=== PATIENT | male | born 1970 | race Caucasian/White ===

== ENCOUNTER 2018-10-09 05:07 | Emergency (ER) | payer BC ==
[2018-10-09] MEDS ORDERED: Sodium Chloride 0.9% 10 ML Syringe FLUSH PRN (05:19)
[2018-10-09] MEDS ORDERED: Sodium Chloride 0.9% 1,000 ML IV SCH (05:30)
--- NOTE | 2018-10-09 05:32 | EDM.PDOC ---
ED HPI GENERAL MEDICAL PROBLEM - General Chief Complaint: Neuro Symptoms/Deficits Stated Complaint: UPPER BACK PAIN Time Seen by Provider: 10/09/18 05:15 Source of Information: Reports: Patient, Family History Limitations: Reports: No Limitations - History of Present Illness INITIAL COMMENTS - FREE TEXT/NARRATIVE: The patient presents with difficulty speaking. This morning his mom heard him stumbling around at 3am. He was having trouble moving his right leg and he was confused. He wanted to take a bath. She did not want him to but he did and then they came here. The patient can speak but he cannot saw the right words and he mixes them up like he knows it is Tuesday but he calls it Monder. He denies numbness or weakness. He has no headache. He has no fever, chills cough , congestion or runny nose. He has no chest pain or shortness of breath. This has never happened before. He did chores last night and moved some snow and he went to bed at 8:30pm. That was the last time known well. He has no medical problems like hypertension, hypercholesterolemia, or diabetes. His blood sugar was 133 on exam. Onset: Gradual Duration: Day(s): (His last time known well was 8:30pm last night) Severity: Moderate Improves with: Reports: None Worsens with: Reports: None Associated Symptoms: Reports: No Other Symptoms - Related Data Allergies Allergy/AdvReac Type Severity Reaction Status Date / Time No Known Allergies Allergy Verified 10/09/18 05:19 ED ROS GENERAL - Review of Systems Review Of Systems: See Below Constitutional: Reports: No Symptoms HEENT: Reports: No Symptoms Respiratory: Reports: No Symptoms Cardiovascular: Reports: No Symptoms Endocrine: Reports: No Symptoms GI/Abdominal: Reports: No Symptoms : Reports: No Symptoms Musculoskeletal: Reports: No Symptoms Skin: Reports: No Symptoms Neurological: Reports: Trouble Speaking, Difficulty Walking ED EXAM, NEURO - Physical Exam Exam: See Below Exam Limited By: No Limitations General Appearance: Alert, No Apparent Distress Ears: Normal External Exam Nose: Normal Inspection Head Exam: Atraumatic, Normocephalic Neck: Normal Inspection Respiratory/Chest: No Respiratory Distress, Lungs Clear, Normal Breath Sounds Cardiovascular: Regular Rate, Rhythm, No Edema, No Murmur GI/Abdominal: Soft, Non-Tender, No Organomegaly, No Mass Neurological: Alert, Oriented x 3, Other (Mild weakness to this right arm and leg. Trouble speaking where he cannot say a word right. He can follow commands.) Extremities: Normal Inspection EKG INTERPRETATION EKG Date: 10/09/18 Time: 05:23 Rhythm: NSR Rate (Beats/Min): 66 [place]: Normal P-Wave: Present QRS: Normal ST-T: Normal QT: Normal Course - Vital Signs Last Recorded V/S: Last Vital Signs Temp 96.6 F 10/09/18 05:12 Pulse 69 10/09/18 05:12 Resp 9 L 10/09/18 05:12 BP 147/87 H 10/09/18 05:12 Pulse Ox 100 10/09/18 05:12 - Orders/Labs/Meds Orders: Active Orders 24 hr Category Date Time Status Cardiac Monitoring [RC] . DIRECTED Care 10/09/18 05:20 Active EKG Documentation Completion [RC] STAT Care 10/09/18 05:20 Active Peripheral IV Care [RC] . DIRECTED Care 10/09/18 05:21 Active Head wo Cont [CT] Stat Exams 10/09/18 05:33 Taken DRUG SCREEN, URINE [URCHEM] Stat Lab 10/09/18 05:19 Ordered INR,PT,PROTHROMBIN TIME [COAG] Stat Lab 10/09/18 05:19 Received PTT,PARTIAL THROMBOPLSTIN TIME [COAG] Stat Lab 10/09/18 05:19 Received Sodium Chloride 0.9% [Normal Saline] 1,000 ml Med 10/09/18 05:30 Active IV ASDIRECTED Sodium Chloride 0.9% [Saline Flush] Med 10/09/18 05:19 Active 10 ml FLUSH ASDIRECTED PRN Peripheral IV Insertion Adult [OM.PC] Stat Oth 10/09/18 05:19 Ordered Medication Orders Sodium Chloride (Normal Saline) 1,000 mls @ 125 mls/hr IV ASDIRECTED RENATE Last Admin: 10/09/18 05:40 Dose: 125 mls/hr Sodium Chloride (Saline Flush) 10 ml FLUSH ASDIRECTED PRN PRN Reason: Keep Vein Open Last Admin: 10/09/18 05:40 Dose: 10 ml Labs: Laboratory Tests 10/09/18 10/09/18 10/09/18 Range/Units 05:17 05:19 05:19 WBC 8.36 (4.23-9.07) K/mm3 RBC 5.42 (4.63-6.08) M/mm3 Hgb 15.0 (13.7-17.5) gm/L Hct 44.7 (40.1-51.0) % MCV 82.5 (79.0-92.2) fl MCH 27.7 (25.7-32.2) pg MCHC 33.6 (32.2-35.5) g/dl RDW Std Deviation 39.8 (35.1-43.9) fL Plt Count 198 (163-337) K/mm3 MPV 10.2 (9.4-12.3) fl Neut % (Auto) 74.3 H (34.0-67.9) % Lymph % (Auto) 16.7 L (21.8-53.1) % Cameron % (Auto) 6.9 (5.3-12.2) % Eos % (Auto) 0.8 (0.8-7.0) Baso % (Auto) 0.2 (0.1-1.2) % Neut # (Auto) 6.20 H (1.78-5.38) K/mm3 Lymph # (Auto) 1.40 (1.32-3.57) K/mm3 Cameron # (Auto) 0.58 (0.30-0.82) K/mm3 Eos # (Auto) 0.07 (0.04-0.54) K/mm3 Baso # (Auto) 0.02 (0.01-0.08) K/mm3 Sodium 139 (136-145) mEq/L Potassium 3.6 (3.5-5.1) mEq/L Chloride 102 (98-107) mEq/L Carbon Dioxide 26 (21-32) mEq/L Anion Gap 14.6 (5-15) BUN 25 H (7-18) mg/dL Creatinine 1.0 (0.7-1.3) mg/dL Est Cr Clr Drug Dosing TNP Estimated GFR (MDRD) > 60 (>60) mL/min BUN/Creatinine Ratio 25.0 H (14-18) Glucose 137 H (74-106) mg/dL POC Glucose 133 H (70-105) mg/dL Calcium 8.6 (8.5-10.1) mg/dL Total Bilirubin 0.5 (0.2-1.0) mg/dL AST 23 (15-37) U/L ALT 61 (16-63) U/L Alkaline Phosphatase 88 (46-116) U/L Troponin I < 0.017 (0.00-0.056) ng/mL Total Protein 7.0 (6.4-8.2) g/dl Albumin 4.0 (3.4-5.0) g/dl Globulin 3.0 gm/dL Albumin/Globulin Ratio 1.3 (1-2) Ethyl Alcohol 0.00 (0.00) gm% Meds: Medications Generic Name Dose Route Start Last Admin Trade Name Freq PRN Reason Stop Dose Admin Sodium Chloride 1,000 mls @ 125 mls/hr 10/09/18 05:30 10/09/18 05:40 Normal Saline IV 125 mls/hr ASDIRECTED RENATE Administration Sodium Chloride 10 ml 10/09/18 05:19 10/09/18 05:40 Saline Flush FLUSH 10 ml ASDIRECTED PRN Administration Keep Vein Open - Re-Assessments/Exams Free Text/Narrative Re-Assessment/Exam: 10/09/18 05:35 A stroke alert was called. I went into the room right away. The patient was having trouble speaking and mild right arm and leg weakness. His last time known well was last night at 8:30pm. He is out of the time limit for thrombolytics. I ordered an IV saline lock, CT of his head, EKG and labs. His EKG shows a NSR with no acute changes. 10/09/18 05:59 His CBC and CMP look good. His troponin is negative. His ETOH is negative. [facility] radiologist called me and said that there is no intracranial hemorrhage. He does have asymmetrically hyperdense left M2 is suspicious for acute infarct or ischemia of the left MCA territory. No cortically based edema/difinite infarct is confirmed in this distribution at this time. Age indeterminate 1cm lacunar infarct of the left paramedian rostral jeff. This is in the vicinity of or immediately posterior to the corticospinal tracts. The lacunar infarct of the right basal ganglia caudate and putaman is somewhat favored to be chronic , but age indeterminate in the absence of prior studies. I feel he needs further care at a stroke center. I called [facility] in [place] and talked with Dr Garcia from the ER and he accepted the patient. [facility] will be flying him with the helicopter. Departure - Departure Time of Disposition: 06:15 Disposition: DC/Tfer to Acute Hospital 02 Condition: Serious Clinical Impression: Cerebrovascular accident (CVA) Qualifiers: CVA mechanism: unspecified Qualified Code(s): I63.9 - Cerebral infarction, unspecified - Discharge Information Referrals: Palma Rojas, MANAGER OF IT [Primary Care Provider] - Forms: ED Department Discharge - My Orders Last 24 Hours: My Active Orders 10/09/18 05:19 DRUG SCREEN, URINE [URCHEM] Stat INR,PT,PROTHROMBIN TIME [COAG] Stat PTT,PARTIAL THROMBOPLSTIN TIME [COAG] Stat Sodium Chloride 0.9% [Saline Flush] 10 ml FLUSH ASDIRECTED PRN Peripheral IV Insertion Adult [OM.PC] Stat 10/09/18 05:20 Cardiac Monitoring [RC] . DIRECTED EKG Documentation Completion [RC] STAT 10/09/18 05:21 Peripheral IV Care [RC] . DIRECTED 10/09/18 05:30 Sodium Chloride 0.9% [Normal Saline] 1,000 ml IV ASDIRECTED 10/09/18 05:33 Head wo Cont [CT] Stat - Assessment/Plan Last 24 Hours: My Active Orders 10/09/18 05:19 DRUG SCREEN, URINE [URCHEM] Stat INR,PT,PROTHROMBIN TIME [COAG] Stat PTT,PARTIAL THROMBOPLSTIN TIME [COAG] Stat Sodium Chloride 0.9% [Saline Flush] 10 ml FLUSH ASDIRECTED PRN Peripheral IV Insertion Adult [OM.PC] Stat 10/09/18 05:20 Cardiac Monitoring [RC] . DIRECTED EKG Documentation Completion [RC] STAT 10/09/18 05:21 Peripheral IV Care [RC] . DIRECTED 10/09/18 05:30 Sodium Chloride 0.9% [Normal Saline] 1,000 ml IV ASDIRECTED 10/09/18 05:33 Head wo Cont [CT] Stat
--- NOTE | 2018-10-09 07:17 | CT ---
Head CT Technique: Multiple axial sections through the brain were obtained. Intravenous contrast was not utilized. Comparison: No prior intracranial imaging. Findings: Ventricles along the basal cisterns and sulci over the convexities are within normal limits for the patient's age. Low-density finding noted within the left side of the jeff. Well defined low density finding noted within the right basal ganglia. No other abnormal parenchymal densities are seen. No evidence of intracranial hemorrhage. No midline shift or mass effect is seen. Bone window settings were reviewed which show no acute calvarial abnormality. Visualized sinuses are clear. Impression: 1. Low-density finding within the left side of the jeff. This may represent an area of small vessel ischemic demyelination change or small infarct. MRI would be helpful to further define age. 2. Old infarct within the right basal ganglia. 3. No intracranial hemorrhage is seen. Note: Preliminary report mentions hyperdense left middle cerebral artery. This is most likely due to slow blood flow rather than thrombus, although MR angiogram would confirm. Diagnostic code #3 I agree with preliminary report from [facility], finalized on 10/09/18, 6:55 AM Central Time
== END 2018-10-09 06:58 ==
LOC: JD.ED 05:07
DX: I63.9 Cerebral infarction, unspecified (principal); G81.91 Hemiplegia, unspecified affecting right dominant side
CPT/HCPCS: 36415; 70450; 80053; 82962; 84484; 85025; 85610; 85730; 93005; 96360; 99285; G0480; J7040; 93010